=== PATIENT | female | born 1995 | race Caucasian/White ===

== ENCOUNTER 2016-09-13 14:39 | Observation (INO) | payer OTHER ==
[2017-03-22] MEDS ORDERED: COLACE 100MG C100 MG PO (16:12)
== END 2016-09-13 19:20 | disposition home or self-care (01) ==
LOC: GENOP 14:39 → OB 14:51
PROVIDERS: ADMIT Obstetrics & Gynecology
DX: O21.1 Hyperemesis gravidarum with metabolic disturbance (principal); O99.511 Diseases of the respiratory system complicating pregnancy, first trimester; J45.909 Unspecified asthma, uncomplicated; Z79.899 Other long term (current) drug therapy; Z80.1 Family history of malignant neoplasm of trachea, bronchus and lung
CPT/HCPCS: 96360; 96366; 96374; G0378; J2405; J7120

== ENCOUNTER 2020-10-07 16:44 | Emergency (ER) | payer OTHER ==
[~2020-10-07 16:44] MED LIST: ADVAIR 500-501 EACH INH; AMOXICILLIN875 MG PO; COLACE 100MG C100 MG PO; DOXYCYCLINE HY100 M2 PO; PROAIR HFA8.5 GM INH; SINGULAIR10 MG PO; SPRINTEC 28 DA1 EACH PO; VENTOLIN HFA 66.7 GM INH; ZANTAC150 MG PO; ZYRTEC10 MG PO
[2020-10-07 17:54] LABS: HEMOGLOBIN 13.6 gm/dl (12.3-15.3); RED BLOOD COUNT 4.41 M/UL (4.00-5.10); WHITE BLOOD COUNT 10.3 K/UL (4.5-11.0)
[2020-10-07 18:18] LABS: BUN/CREATININE RATIO 11 (0-10)
[2020-10-07] MEDS ORDERED: K-DUR TAB 20 M20 MEQ PO (19:56)
[2020-10-09 15:14] LABS: LYME IGG/IGM AB <0.91 ISR (0.00-0.90)
== END 2020-10-07 20:25 | disposition home or self-care (01) ==
LOC: ER1 16:44
PROVIDERS: Physician Assistant
DX: R25.3 Fasciculation (principal); J45.909 Unspecified asthma, uncomplicated; Z79.899 Other long term (current) drug therapy; Z88.8 Allergy status to other drugs, medicaments and biological substances
CPT/HCPCS: 70450; 80053; 82330; 83735; 85025; 86618; 99283

== ENCOUNTER → 2020-11-21 | Outpatient (CLI) | payer OTHER ==
[~2020-11-21] MED LIST changes: +K-DUR TAB 20 M20 MEQ PO
== END ==
LOC: EMI 08:00
DX: R25.3 Fasciculation (principal)
CPT/HCPCS: 70551; 72141